=== PATIENT | male | born 1980 | race Caucasian/White ===

== ENCOUNTER 2020-07-24 21:32 | Emergency (ER) | payer OTHER ==
[~2020-07-24] VITALS: Ht 180.3 cm; Wt 117.9 kg
[2020-07-24] MEDS ORDERED: VENTOLIN HFA18 GM INH (23:24)
[2020-07-24] MEDS ORDERED: REMERON30 MG PO (23:24)
[2020-07-24] MEDS ORDERED: AMLODIPINE BESY10 MG PO (23:24)
[2020-07-24] MEDS ORDERED: ALVESCO6.1 G1 INH (23:24)
[2020-07-24] MEDS ORDERED: CHLORTHALIDONE25 MG PO (23:25)
[2020-07-24] MEDS ORDERED: MONTELUKAST SOD10 MG PO (23:25)
[2020-07-24] MEDS ORDERED: ASPIRIN81 MG PO (23:25)
--- NOTE | 2020-07-25 19:12 | EKG ---
[facility] [address] [place], [place] [address] Signed Undetermined rhythm Nonspecific T wave abnormality Abnormal ECG No previous ECGs available Confirmed by OLY GARCIA MD [id number] on 07/25/2020 7:12:36 PM Electronically Signed By: OLY GARCIA MD 07/25/201911 PATIENT NAME: JOAN BHATTI Electrocardiogram DATE OF : 82 PHYSICIAN: OLY GARCIA MD REPORT #: [id number] REPORT IS CONFIDENTIAL AND NOT TO BE RELEASED WITHOUT AUTHORIZATION
== END 2020-07-24 23:45 | disposition home or self-care (01) ==
LOC: ED 21:32
DX: G43.109 Migraine with aura, not intractable, without status migrainosus (principal); R07.9 Chest pain, unspecified; E87.6 Hypokalemia; R20.2 Paresthesia of skin; Z87.891 Personal history of nicotine dependence; Z88.8 Allergy status to other drugs, medicaments and biological substances
CPT/HCPCS: 70450; 71045; 80053; 83735; 84484; 85025; 93005; 93010; 96374; 99285-25; J2765